=== PATIENT | female | born 1945 | race African-American/Black ===

== ENCOUNTER 2022-08-24 04:19 | Day surgery (SDC) | payer OTHER ==
[2022-08-23 13:57] VITALS: BMI 30.9
[2022-08-24] MEDS ORDERED: POVIDONE-IODINE 5% OPHTHALMIC PREP 30 ML SOLUTION ONE (07:17)
[2022-08-24] MEDS ORDERED: TOBRAMYCIN/DEXAMETHASONE OPHTH. OINTMENT 1 TUBE ONE (07:17)
[2022-08-24] MEDS ORDERED: ACETAMINOPHEN 325 MG TABLET (FP) PO PRN (08:31)
[2022-08-24] MEDS ORDERED: DICLOFENAC SODIUM 0.1% OPHTHALMIC 2.5ML BOTTLE OP SCH (08:45)
[2022-08-24 09:00] VITALS: RESP 18
[2022-08-24] MEDS ORDERED: TROPICAMIDE 1% OPHTH SOLN 15 ML BOTTLE ONE (09:26)
[2022-08-24] MEDS ORDERED: PHENYLEPHRINE 2.5% OPHTH SOLN 15 ML BOTTLE ONE (09:26)
[2022-08-24] MEDS ORDERED: CIPROFLOXACIN HCL 0.3% OPHTH 2.5ML BOTTLE ONE (09:26)
[2022-08-24] MEDS: CIPROFLOXACIN HCL 0.3% OPHTH 2.5ML BOTTLE OP SCH ×3 (09:45→10:00)
[2022-08-24] MEDS: PHENYLEPHRINE 2.5% OPHTH SOLN 15 ML BOTTLE OP SCH ×3 (09:45→10:00)
[2022-08-24] MEDS: TROPICAMIDE 1% OPHTH SOLN 15 ML BOTTLE OP SCH ×3 (09:45→10:00)
[2022-08-24] MEDS ORDERED: MIDAZOLAM HCL 2 MG/2 ML SINGLE DOSE VIAL ONE (10:58)
[2022-08-24] MEDS ORDERED: TETRACAINE 0.5% OPHTH SOLN 2 ML BOTTLE OS ONE (11:03)
[2022-08-24] MEDS ORDERED: POVIDONE-IODINE 5% OPHTHALMIC PREP 30 ML SOLUTION OS ONE (11:05)
[2022-08-24] MEDS ORDERED: BSS (NA/CA/MG/K) BALANCED SALT SOLUTION OPHTH SOLN 15 ML BOTTLE IO ONE (11:09)
[2022-08-24] MEDS ORDERED: LIDOCAINE HCL 1% PRESERVATIVE FREE - 30ML VIAL IO ONE (11:10)
[2022-08-24] MEDS ORDERED: CHONDROITIN SU A/HYALUR SOD 1 KIT IO ONE (11:11)
[2022-08-24] MEDS ORDERED: EPINEPHrine/PF 1 MG/1 ML (1:1,000) AMPULE SQ ONE (11:16)
[2022-08-24] MEDS ORDERED: TOBRAMYCIN/DEXAMETHASONE OPHTH. OINTMENT 1 TUBE OS ONE (11:27)
[2022-08-24 11:51] VITALS: BP 131/82; PULSE 63; TEMP 97.3
== END 2022-08-24 12:33 | disposition home or self-care (01) ==
LOC: JASU-SURG 04:19
PROVIDERS: ATTEND Ophthalmology
PROC: 08RK3JZ Replacement of Left Lens with Synthetic Substitute, Percutaneous Approach (ICD-10-PCS; principal; 2022-08-24 10:30)
DX: H25.12 Age-related nuclear cataract, left eye (principal)
CPT/HCPCS: 66984; V2632